=== PATIENT | female | born 1965 | race Caucasian/White ===

== ENCOUNTER 2017-01-28 10:41 | Emergency (ER) | payer OTHER ==
[2017-01-28 10:48] VITALS: BP 173/96; PULSE 91; RESP 16; TEMP 97.9
--- NOTE | 2017-01-28 11:02 | ED ---
ENT HPI - General Chief complaint: ENT Stated complaint: ear pain Time Seen by Provider: 01/28/17 10:51 Source: patient, RN notes reviewed Mode of arrival: ambulatory Limitations: no limitations - History of Present Illness Initial comments: 51-year-old female presents emergency Department chief complaint bilateral ear pressure. Patient states she's been multiple rounds of antibiotics for the seizures. She states that it cleared up states that she still has some pressure , pain. Patient denies fever, chills, sore throat. Patient states that they are popping occasionally. Patient does have some mild seasonal ALLERGIES. Patient offers no other complaints she denied dizziness, chest pain, shortness breath, neck pain. - Related Data Home Medications Medication Instructions Recorded Confirmed Glimepiride [Amaryl] 4 mg PO AC-BRKFST 06/29/14 02/25/16 Levothyroxine Sodium [Synthroid] 25 mcg PO DAILY 06/29/14 02/25/16 Furosemide [Lasix] 20 mg PO DAILY 08/02/15 02/25/16 Acetaminophen with Codeine 1 tab PO TID PRN 10/29/15 02/25/16 [Tylenol w/codeine #4] Loratadine [Claritin] 10 mg PO DAILY PRN 10/29/15 02/25/16 Magnesium Oxide [Mag-Ox] 400 mg PO DAILY PRN 10/29/15 02/25/16 Pioglitazone [Actos] 15 mg PO DAILY 10/29/15 02/25/16 Fluticasone Nasal [place] [Flonase 2 sprays EA NOSTRIL DAILY PRN 12/11/15 02/25/16 Nasal [place]] Omeprazole [PriLOSEC] 20 mg PO BID 12/11/15 02/25/16 Atorvastatin [Lipitor] 40 mg PO HS 01/19/16 02/25/16 DULoxetine HCL [Cymbalta] 60 mg PO DAILY 01/19/16 02/25/16 ALPRAZolam [Xanax] 0.5 mg PO TID PRN 02/25/16 02/25/16 Aspirin EC [Ecotrin] 81 mg PO DAILY 02/25/16 02/25/16 Losartan Potassium [Cozaar] 50 mg PO DAILY 02/25/16 02/25/16 sitaGLIPtin [Januvia] 100 mg PO DAILY 02/25/16 02/25/16 Previous Rx's Medication Instructions Recorded Potassium Chloride ER [K-Dur 10] 10 meq PO DAILY #30 tab 12/12/15 Fluticasone Nasal [place] [Flonase 2 spr EA NOSTRIL DAILY #1 bottle 01/28/17 Nasal [place]] methylPREDNISolone [Medrol Dose 4 mg PO DIRECTED #1 pack 01/28/17 Pack] Allergies Allergy/AdvReac Type Severity Reaction Status Date / Time aspirin Allergy Unknown Verified 01/28/17 10:45 celecoxib [From Celebrex] Allergy Unknown Verified 01/28/17 10:45 cephalexin monohydrate Allergy Unknown Verified 01/28/17 10:45 [From Keflex] hydrochlorothiazide Allergy Unknown Verified 01/28/17 10:45 ibuprofen [From Motrin] Allergy Unknown Verified 01/28/17 10:45 NSAIDS (Non-Steroidal Allergy Unknown Verified 01/28/17 10:45 Anti-Inflamma tramadol HCl [From Ultram] Allergy Unknown Verified 01/28/17 10:45 Review of Systems ROS Statement: Those systems with pertinent positive or pertinent negative responses have been documented in the HPI. ROS Other: All systems not noted in ROS Statement are negative. Past Medical History Past Medical History: Diabetes Mellitus, Osteoarthritis (OA), Sleep Apnea/CPAP/ BIPAP, Thyroid Disorder Additional Past Medical History / Comment(s): SEE DR PIÑA H&P, RESTLESS LEG, ARRYTHMIA History of Any Multi-Drug Resistant Organisms: None Reported Past Surgical History: Ablation, Section, Hysterectomy, Orthopedic Surgery Additional Past Surgical History / Comment(s): carpal tunnel 2, HEART ABLATION WITH AYANA, Past Anesthesia/Blood Transfusion Reactions: No Reported Reaction Past Psychological History: Anxiety, Depression Additional Psychological History / Comment(s): panic attacks Smoking Status: Never smoker Past Alcohol Use History: Rare Past Drug Use History: None Reported - Past Family History Mother Family Medical History: Coronary Artery Disease (CAD), Diabetes Mellitus, Hypertension Father Family Medical History: Congestive Heart Failure (CHF), CVA/TIA, Hypertension Sister(s) Family Medical History: Coronary Artery Disease (CAD), Diabetes Mellitus Brother(s) Family Medical History: Coronary Artery Disease (CAD), CVA/TIA Son(s) Family Medical History: No Reported History General Exam Limitations: no limitations General appearance: alert, in no apparent distress Head exam: Present: atraumatic, normocephalic, normal inspection Eye exam: Present: normal appearance, PERRL, EOMI. Absent: scleral icterus, conjunctival injection, periorbital swelling ENT exam: Present: normal oropharynx, mucous membranes moist, normal external ear exam. Absent: normal exam, TM's normal bilaterally (Some fluid noted in bilateral TM) Neck exam: Present: normal inspection, full ROM. Absent: tenderness, meningismus, lymphadenopathy Respiratory exam: Present: normal lung sounds bilaterally. Absent: respiratory distress, wheezes, rales, rhonchi, stridor Cardiovascular Exam: Present: regular rate, normal rhythm, normal heart sounds. Absent: systolic murmur, diastolic murmur, rubs, gallop, clicks Course Vital Signs 01/28/17 10:45 Temperature 97.9 F Pulse Rate 91 Respiratory 16 Rate Blood Pressure 173/96 O2 Sat by Pulse 99 Oximetry Medical Decision Making - Medical Decision Making 51-year-old female presented for bilateral ear pain pressure. Patient has eustachian tube dysfunction there is no evidence of otitis media at this time. Patient will be given aggressive treatment with Flonase and Medrol Dosepak. She may take [id number] antihistamines. Return parameters were discussed. Disposition Clinical Impression: Eustachian tube dysfunction Disposition: HOME SELF-CARE Condition: Stable Instructions: Earache (ED) Additional Instructions: Please return to the Emergency Department if symptoms worsen or any other concerns. Prescriptions: Fluticasone Nasal [place] [Flonase Nasal [place]] 2 spr EA NOSTRIL DAILY #1 bottle methylPREDNISolone [Medrol Dose Pack] 4 mg PO DIRECTED #1 pack Time of Disposition: 11:02
== END 2017-01-28 11:05 | disposition home or self-care (01) ==
LOC: EC 10:41
DX: H69.93 Unspecified Eustachian tube disorder, bilateral (principal); E07.9 Disorder of thyroid, unspecified; E11.9 Type 2 diabetes mellitus without complications; F32.9 Major depressive disorder, single episode, unspecified; Z88.1 Allergy status to other antibiotic agents; Z88.6 Allergy status to analgesic agent; Z88.8 Allergy status to other drugs, medicaments and biological substances; Z79.82 Long term (current) use of aspirin; Z79.84 Long term (current) use of oral hypoglycemic drugs; Z79.899 Other long term (current) drug therapy
CPT/HCPCS: 99283

== ENCOUNTER 2017-04-07 19:52 | Emergency (ER) | payer OTHER ==
[2017-04-07] MEDS ORDERED: NITROGLYCERIN SL TABS 0.4 MG TAB SUBLINGUAL STA ×3 (20:07)
[2017-04-07] MEDS ORDERED: ASPIRIN 81 MG CHEW PO STA (20:08)
--- NOTE | 2017-04-07 20:14 | ED ---
General Adult HPI - General Chief complaint: Chest Pain Stated complaint: chest pain Time Seen by Provider: 04/07/17 20:01 Source: patient, RN notes reviewed Mode of arrival: wheelchair Limitations: no limitations - History of Present Illness Initial comments: Patient is a pleasant 52-year-old female presenting to the emergency department complaining of chest discomfort. Onset was around 3 weeks ago. Discomfort feels like pressure. There is radiation towards left arm. Patient does have associated dyspnea, nausea, and diaphoresis. Symptoms are not necessarily exertional. No history of similar symptoms previously. No leg pain or leg swelling. No cough or fever. - Related Data Home Medications Medication Instructions Recorded Confirmed Glimepiride [Amaryl] 4 mg PO AC-BRKFST 06/29/14 04/07/17 Levothyroxine Sodium [Synthroid] 25 mcg PO DAILY 06/29/14 04/07/17 Furosemide [Lasix] 20 mg PO DAILY 08/02/15 04/07/17 Acetaminophen with Codeine 1 tab PO TID PRN 10/29/15 04/07/17 [Tylenol w/codeine #4] Magnesium Oxide [Mag-Ox] 400 mg PO DAILY PRN 10/29/15 04/07/17 Pioglitazone [Actos] 15 mg PO DAILY 10/29/15 04/07/17 Fluticasone Nasal [place] [Flonase 2 sprays EA NOSTRIL DAILY PRN 12/11/15 04/07/17 Nasal [place]] Omeprazole [PriLOSEC] 20 mg PO BID 12/11/15 04/07/17 Atorvastatin [Lipitor] 40 mg PO HS 01/19/16 04/07/17 DULoxetine HCL [Cymbalta] 60 mg PO DAILY 01/19/16 04/07/17 ALPRAZolam [Xanax] 0.5 mg PO TID PRN 02/25/16 04/07/17 Aspirin EC [Ecotrin] 81 mg PO DAILY 02/25/16 04/07/17 Losartan Potassium [Cozaar] 50 mg PO DAILY 02/25/16 04/07/17 sitaGLIPtin [Januvia] 100 mg PO DAILY 02/25/16 04/07/17 Gabapentin Unknown Dose 1 cap PO BID 04/07/17 04/07/17 Loperamide HCl [Imodium A-D] 2 mg PO DAILY PRN 04/07/17 04/07/17 Previous Rx's Medication Instructions Recorded Potassium Chloride ER [K-Dur 10] 10 meq PO DAILY #30 tab 12/12/15 Allergies Allergy/AdvReac Type Severity Reaction Status Date / Time aspirin Allergy Unknown Verified 04/07/17 20:29 celecoxib [From Celebrex] Allergy Unknown Verified 04/07/17 20:29 cephalexin monohydrate Allergy Unknown Verified 04/07/17 20:29 [From Keflex] hydrochlorothiazide Allergy Unknown Verified 04/07/17 20:29 ibuprofen [From Motrin] Allergy Unknown Verified 04/07/17 20:29 NSAIDS (Non-Steroidal Allergy Unknown Verified 04/07/17 20:29 Anti-Inflamma tramadol HCl [From Ultram] Allergy Unknown Verified 04/07/17 20:29 Review of Systems ROS Statement: Those systems with pertinent positive or pertinent negative responses have been documented in the HPI. ROS Other: All systems not noted in ROS Statement are negative. Constitutional: Denies: fever Eyes: Denies: eye pain ENT: Denies: ear pain Respiratory: Reports: dyspnea. Denies: cough Cardiovascular: Reports: chest pain Gastrointestinal: Reports: nausea. Denies: abdominal pain Genitourinary: Denies: dysuria Musculoskeletal: Denies: back pain Skin: Denies: rash Neurological: Denies: weakness Psychiatric: Denies: depression Past Medical History Past Medical History: Diabetes Mellitus, Osteoarthritis (OA), Sleep Apnea/CPAP/ BIPAP, Thyroid Disorder Additional Past Medical History / Comment(s): SEE DR BETTENCOURT H&P, RESTLESS LEG, ARRYTHMIA History of Any Multi-Drug Resistant Organisms: None Reported Past Surgical History: Ablation, Section, Hysterectomy, Orthopedic Surgery Additional Past Surgical History / Comment(s): carpal tunnel 2, HEART ABLATION WITH AYANA, Past Anesthesia/Blood Transfusion Reactions: No Reported Reaction Past Psychological History: Anxiety, Depression Smoking Status: Never smoker Past Alcohol Use History: Rare Past Drug Use History: None Reported - Past Family History Mother Family Medical History: Coronary Artery Disease (CAD), Diabetes Mellitus, Hypertension Father Family Medical History: Congestive Heart Failure (CHF), CVA/TIA, Hypertension Sister(s) Family Medical History: Coronary Artery Disease (CAD), Diabetes Mellitus Brother(s) Family Medical History: Coronary Artery Disease (CAD), CVA/TIA Son(s) Family Medical History: No Reported History General Exam Limitations: no limitations General appearance: alert, in no apparent distress Head exam: Present: atraumatic Eye exam: Present: normal appearance, PERRL ENT exam: Present: normal oropharynx Neck exam: Present: normal inspection Respiratory exam: Present: normal lung sounds bilaterally Cardiovascular Exam: Present: regular rate, normal rhythm Expanded Peripheral pulses: 2+: Radial (R), Radial (L), Dorsalis Pedis (R), Dorsalis Pedis (L) GI/Abdominal exam: Present: soft. Absent: tenderness Extremities exam: Present: normal inspection. Absent: pedal edema, calf tenderness Neurological exam: Present: alert Psychiatric exam: Present: normal affect, normal mood Skin exam: Present: normal color Course Vital Signs 04/07/17 04/07/17 04/07/17 19:59 21:03 22:08 Temperature 98.6 F Pulse Rate 94 87 90 Respiratory 18 16 16 Rate Blood Pressure 151/70 117/71 136/62 O2 Sat by Pulse 99 100 100 Oximetry - Reevaluation(s) Reevaluation #1: 04/07/17 20:09 Patient states aspirin upsets her stomach unless it is enteric-coated. EKG Findings - EKG Comments: EKG Findings:: Normal sinus rhythm at 90. VA 146. QRS 80. QT 352. QTC 4:30. Normal axis. Normal QRS. Normal ST-T. Medical Decision Making - Medical Decision Making Patient reevaluated and resting comfortably in bed. No change of symptoms. Patient refused further nitroglycerin and spit out the nitroglycerin secondary to burning under her tongue. Patient was updated on results. Patient was recommended to be admitted for repeat testing and medicine and cardiology evaluation. Patient is made aware of limitations of tests in the emergency department. Patient is also made aware that heart attack has not been ruled out and risk for heart attack in the near future has not been ruled out. Despite this patient refuses admission and will leave AGAINST MEDICAL ADVICE. Patient does demonstrate medical decision making. Patient states she has an appointment tomorrow with her digital media manager and agrees to keep this. - Lab Data Result diagrams: 04/07/17 20:10 04/07/17 20:10 Lab Results 06/25/17 06/25/17 06/25/17 Range/Units 20:10 20:10 20:10 WBC 10.0 (3.8-10.6) k/uL RBC 4.64 (3.80-5.40) m/uL Hgb 14.3 (11.4-16.0) gm/dL Hct 42.7 (34.0-46.0) % MCV 92.1 (80.0-100.0) fL MCH 30.9 (25.0-35.0) pg MCHC 33.6 (31.0-37.0) g/dL RDW 14.4 (11.5-15.5) % Plt Count 207 (150-450) k/uL Neutrophils % 64 % Lymphocytes % 25 % Monocytes % 6 % Eosinophils % 2 % Basophils % 1 % Neutrophils # 6.4 (1.3-7.7) k/uL Lymphocytes # 2.5 (1.0-4.8) k/uL Monocytes # 0.6 (0-1.0) k/uL Eosinophils # 0.2 (0-0.7) k/uL Basophils # 0.1 (0-0.2) k/uL PT (9.0-12.0) sec INR (<1.1) APTT (22.0-30.0) sec Sodium 141 (137-145) mmol/L Potassium 4.1 (3.5-5.1) mmol/L Chloride 102 (98-107) mmol/L Carbon Dioxide 27 (22-30) mmol/L Anion Gap 12 mmol/L BUN 17 (7-17) mg/dL Creatinine 0.75 (0.52-1.04) mg/dL Est GFR (MDRD) Af Amer >60 (>60 ml/min/1.73 sqM) Est GFR (MDRD) Non-Af >60 (>60 ml/min/1.73 sqM) Glucose 254 H (74-99) mg/dL Calcium 9.8 (8.4-10.2) mg/dL Magnesium 1.8 (1.6-2.3) mg/dL Total Bilirubin 0.7 (0.2-1.3) mg/dL AST 62 H (14-36) U/L ALT 44 (9-52) U/L Alkaline Phosphatase 93 (38-126) U/L Total Creatine Kinase 96 (30-135) U/L CK-MB (CK-2) 0.6 (0.0-2.4) ng/mL CK-MB (CK-2) Rel Index 0.6 Troponin I <0.012 (0.000-0.034) ng/mL NT-Pro-B Natriuret Pep pg/mL Total Protein 8.1 (6.3-8.2) g/dL Albumin 4.2 (3.5-5.0) g/dL 04/07/17 04/07/17 Range/Units 20:10 20:10 WBC (3.8-10.6) k/uL RBC (3.80-5.40) m/uL Hgb (11.4-16.0) gm/dL Hct (34.0-46.0) % MCV (80.0-100.0) fL MCH (25.0-35.0) pg MCHC (31.0-37.0) g/dL RDW (11.5-15.5) % Plt Count (150-450) k/uL Neutrophils % % Lymphocytes % % Monocytes % % Eosinophils % % Basophils % % Neutrophils # (1.3-7.7) k/uL Lymphocytes # (1.0-4.8) k/uL Monocytes # (0-1.0) k/uL Eosinophils # (0-0.7) k/uL Basophils # (0-0.2) k/uL PT 11.5 (9.0-12.0) sec INR 1.1 (<1.1) APTT 23.7 (22.0-30.0) sec Sodium (137-145) mmol/L Potassium (3.5-5.1) mmol/L Chloride (98-107) mmol/L Carbon Dioxide (22-30) mmol/L Anion Gap mmol/L BUN (7-17) mg/dL Creatinine (0.52-1.04) mg/dL Est GFR (MDRD) Af Amer (>60 ml/min/1.73 sqM) Est GFR (MDRD) Non-Af (>60 ml/min/1.73 sqM) Glucose (74-99) mg/dL Calcium (8.4-10.2) mg/dL Magnesium (1.6-2.3) mg/dL Total Bilirubin (0.2-1.3) mg/dL AST (14-36) U/L ALT (9-52) U/L Alkaline Phosphatase (38-126) U/L Total Creatine Kinase (30-135) U/L CK-MB (CK-2) (0.0-2.4) ng/mL CK-MB (CK-2) Rel Index Troponin I (0.000-0.034) ng/mL NT-Pro-B Natriuret Pep 27 pg/mL Total Protein (6.3-8.2) g/dL Albumin (3.5-5.0) g/dL - Radiology Data Radiology results: image reviewed (Chest x-ray shows no acute process) Disposition Clinical Impression: Chest pain Disposition: Left Against Medical Advice Instructions: Chest Pain (ED) Additional Instructions: Please follow-up with your digital media manager tomorrow as scheduled. Please also follow-up to primary care physician in the next day or 2 for recheck. Return for increased pain, difficulty breathing, worsening or change in symptoms or other concerns. Please take enteric-coated aspirin daily until otherwise directed by your primary care physician or digital media manager. Referrals: Judah Amaya MD [Primary Care Provider] - 1-2 days Bacilio Bettencourt MD [STAFF PHYSICIAN] - 1-2 days Time of Disposition: 22:11
[2017-04-07 20:22] VITALS: TEMP 98.6
[2017-04-07 20:39] LABS: ALT 44 U/L (9-52); AST 62 U/L (14-36); Alkaline Phosphatase 93 U/L (38-126); Anion Gap 12 mmol/L; Blood Urea Nitrogen 17 mg/dL (7-17); Calcium 9.8 mg/dL (8.4-10.2); Carbon Dioxide 27 mmol/L (22-30); Chloride 102 mmol/L (98-107); Glucose 254 mg/dL (74-99); Magnesium 1.8 mg/dL (1.6-2.3); Non-African American GFR(MDRD) >60 (>60 ml/min/1.73 sqM); Potassium 4.1 mmol/L (3.5-5.1); Sodium 141 mmol/L (137-145); Total Bilirubin 0.7 mg/dL (0.2-1.3); Total Protein 8.1 g/dL (6.3-8.2)
[2017-04-07 20:40] LABS: INR 1.1 (<1.1); Partial Thromboplastin Time 23.7 sec (22.0-30.0); Prothrombin Time 11.5 sec (9.0-12.0)
--- NOTE | 2017-04-07 20:43 | XR ---
EXAMINATION TYPE: XR chest 2V DATE OF EXAM: 04/07/2017 COMPARISON: 02/25/2016 HISTORY: Chest pain TECHNIQUE: Frontal and lateral views of the chest are obtained. FINDINGS: There is no heart failure nor confluent pneumonic infiltrate. Heart size is normal. There are no hilar masses. There are chest leads. There is spurring in the thoracic spine. There is no sign of pleural effusion. IMPRESSION: No active cardiopulmonary disease. Normal heart. No change.
[2017-04-07 20:51] LABS: Basophils # (A) 0.1 k/uL (0-0.2); Basophils % (A) 1 %; CH 30.1; CHCM 32.9; Creatine Kinase 96 U/L (30-135); Eosinophils # (A) 0.2 k/uL (0-0.7); Eosinophils % (A) 2 %; HCT 42.7 % (34.0-46.0); HDW 2.86; HGB 14.3 gm/dL (11.4-16.0); Luc # (Auto) 0.29; Luc % (Auto) 3; Lymphocytes # (A) 2.5 k/uL (1.0-4.8); Lymphocytes % (A) 25 %; MCH 30.9 pg (25.0-35.0); MCHC 33.6 g/dL (31.0-37.0); MCV 92.1 fL (80.0-100.0); Mean Platelet Volume 7.1; Monocytes # (A) 0.6 k/uL (0-1.0); Monocytes % (A) 6 %; Neutrophils # (A) 6.4 k/uL (1.3-7.7); Neutrophils % (A) 64 %; RBC 4.64 m/uL (3.80-5.40); RDW 14.4 % (11.5-15.5); WBC (Perox) 9.79
[2017-04-07 21:04] LABS: Creatine Kinase MB 0.6 ng/mL (0.0-2.4); Troponin I <0.012 ng/mL (0.000-0.034)
[2017-04-07 21:05] VITALS: RESP 16
[2017-04-07 22:09] VITALS: BP 136/62; PULSE 90
[2017-04-08] MEDS ORDERED: ASPIRIN 325 MG TAB PO SCH (09:00)
== END 2017-04-07 22:14 | disposition left against medical advice (07) ==
LOC: EC 19:52
DX: R07.9 Chest pain, unspecified (principal); E07.9 Disorder of thyroid, unspecified; E11.9 Type 2 diabetes mellitus without complications; M19.90 Unspecified osteoarthritis, unspecified site; G25.81 Restless legs syndrome; F32.9 Major depressive disorder, single episode, unspecified; F41.9 Anxiety disorder, unspecified; Z82.49 Family history of ischemic heart disease and other diseases of the circulatory system; Z79.899 Other long term (current) drug therapy; Z79.84 Long term (current) use of oral hypoglycemic drugs; Z79.51 Long term (current) use of inhaled steroids; Z79.82 Long term (current) use of aspirin; Z88.6 Allergy status to analgesic agent; Z88.1 Allergy status to other antibiotic agents; Z88.5 Allergy status to narcotic agent; Z88.8 Allergy status to other drugs, medicaments and biological substances
CPT/HCPCS: 36415; 71020; 80053; 82550; 82553; 83735; 83880; 84484; 85025; 85610; 85730; 93005; 99285

== ENCOUNTER 2017-05-06 06:29 | Day surgery (SDC) | payer OTHER ==
[~2017-05-06 06:29] MED LIST: ALPRAZolam 0.25 MG TAB PO PRN; ALPRAZolam 0.5 MG TAB PO PRN; ASPIRIN 325 MG TAB PO STA; ATORVASTATIN 80 MG TAB PO STA; NITROGLYCERIN SL TABS 0.4 MG TAB SUBLINGUAL PRN; SODIUM CHLORIDE 0.9% 1,000 ML in EMPTY BAG 1 BAG IV ONE
[2017-05-06 07:12] LABS: Glucose,Whole Blood 142 mg/dL (75-99)
[2017-05-06 07:17] VITALS: TEMP 98.3
[2017-05-06] MEDS ORDERED: VERAPAMIL 2.5 MG/ML 2 ML AMP ONE (07:34)
[2017-05-06] MEDS ORDERED: fentaNYL (PF) 50 MCG/ML 2 ML AMP ONE (07:34)
[2017-05-06] MEDS ORDERED: diphenhydrAMINE 50 MG/ML 1 ML VIAL ONE (07:34)
[2017-05-06] MEDS ORDERED: fentaNYL (PF) 50 MCG/ML 2 ML AMP IV ONE (07:42)
[2017-05-06] MEDS ORDERED: diphenhydrAMINE 50 MG/ML 1 ML VIAL IVP ONE (07:42)
[2017-05-06] MEDS ORDERED: LIDOCAINE 2% INJ 20 MG/ML SQ ONE (07:45)
[2017-05-06] MEDS ORDERED: VERAPAMIL SYRINGE (5 MG/10 ML) INTRAARTER ONE (07:48)
[2017-05-06] MEDS ORDERED: MIDAZOLAM 2 MG/2 ML VIAL ONE (07:54)
[2017-05-06] MEDS ORDERED: MIDAZOLAM 2 MG/2 ML VIAL IV ONE (07:55)
[2017-05-06] MEDS ORDERED: IOHEXOL 180 MG/ML 1 ML ML INJ ONE (08:00)
[2017-05-06] MEDS ORDERED: RX INFO: IV CONTRAST WAS GIVEN 1 EACH MISC MISCELLANE PRN (08:12)
[2017-05-06] MEDS ORDERED: PANTOPRAZOLE 40 MG TABLET PO PRN (08:13)
[2017-05-06] MEDS ORDERED: POTASSIUM CHLORIDE ER 10 MEQ TAB.ER.PRT PO PRN (08:13)
[2017-05-06] MEDS ORDERED: MAGNESIUM OXIDE 400 MG TAB PO PRN (08:13)
[2017-05-06] MEDS ORDERED: FLUTICASONE 50MCG/SPRAY NASAL 16GM EA NOSTRIL PRN (08:13)
[2017-05-06] MEDS ORDERED: ALPRAZolam 0.5 MG TAB PO PRN (08:13)
[2017-05-06] MEDS ORDERED: Acetaminophen-Codeine 300-30mg TAB PO PRN (08:13)
[2017-05-06] MEDS ORDERED: SODIUM CHLORIDE 0.9% 1,000 ML IV SCH (08:15)
[2017-05-06] MEDS ORDERED: PIOGLITAZONE 15 MG TAB PO STA (08:49)
[2017-05-06] MEDS ORDERED: GLIMEPIRIDE 2 MG TAB PO SCH ×2 (09:00→21:00)
[2017-05-06] MEDS ORDERED: DULoxetine HCL 60 MG CAPSULE.DR PO SCH (09:00)
[2017-05-06] MEDS ORDERED: PIOGLITAZONE 15 MG TAB PO SCH (09:00)
[2017-05-06] MEDS ORDERED: NON-FORMULARY DRUG (Sitagliptin 100 MG) PO SCH (09:00)
[2017-05-06 12:59] VITALS: BP 126/75; PULSE 81; RESP 16
--- NOTE | 2017-05-06 20:23 | CC ---
Mrs. Johnson is a 52-year-old female with known history of hypertension, hyperlipidemia and diabetes mellitus who presented to Dr. Bettencourt with symptoms of recurrent chest discomfort. She had myocardial perfusion imaging that revealed no evidence of inducible ischemia, but she kept on having chest discomfort and was seen in the emergency room. Because of her persistent symptoms, recommendation was made regarding cardiac catheterization. The procedure as well as risks and complications were discussed with the patient, who was in full understanding and agreement. PROCEDURE: The patient was brought to the record label internship in a fasting, semi-sedated state after receiving fentanyl and Benadryl and achieving moderate conscious sedated state. Using Xylocaine anesthesia and surgical technique, a 6 Malaysian sheath was introduced into the right radial artery. Selective right and left coronary angiography was performed using 5 Malaysian, 3.5 Bend, right and left [place] catheters. Multiple views were taken of the coronary arteries, including hemiaxial views. Following that, a 5 [place] tight pigtail catheter was introduced into the left ventricle and a 30-degree DIETZ view of the left ventricle was obtained. Following that, catheter and sheath were removed. Hemostasis was obtained with deployment of a TR band. There were no immediate complications. The patient was returned to her room in stable condition. Of note , patient received 5000 units of intravenous heparin as well as intrarterial Verapamil. FINDINGS LEFT MAIN: This is a large-sized vessel bifurcating into left circumflex, left anterior descending artery. Left main coronary artery is without any obstructive coronary artery disease. LEFT ANTERIOR DESCENDING ARTERY: This is a large-sized vessel reaching toward the apex. It tapers down in the distal third, giving rise to a large diagonal branch. The left anterior descending artery as well as its branches have no evidence of obstructive disease. LEFT CIRCUMFLEX: This is a non-dominant vessel giving rise to 3 obtuse marginal branches. The left circumflex as well as its branches have no evidence of obstructive coronary artery disease. RIGHT CORONARY ARTERY: This is a large dominant vessel bifurcating into PDA and posterolateral segment and branches. The right PDA reaches toward the inferoapical wall. The right coronary artery and its branches have no evidence of obstructive coronary artery disease. LEFT VENTRICULOGRAM: Left ventriculogram was performed in 30-degree DIETZ view and revealed normal left ventricular size and systolic function. Ejection fraction is 60% with no significant mitral regurgitation. HEMODYNAMICS: There was no gradient across the across the aortic valve. The left ventricular end-diastolic pressure was 12 mmHg. CONCLUSION: 1. Normal coronary arteries. 2. Normal left ventricular size and systolic function. RECOMMENDATIONS: In view of findings and anatomy, I have recommended continued medical therapy with the aggressive coronary risk factor modifications that have been initiated. Those findings and recommendations were discussed with the patient and her family, who are in full understanding and agreement. ASHISH MCKEON
--- NOTE | 2017-05-06 20:30 | MISC ---
LETTER DATE: 05/06/2017 TO: DR. MONIKA HINOJOSA RE: NADIA COHEN ([phone]) Dear Dr. Hinojosa, I had the pleasure of performing cardiac catheterization on Mrs. Cohen at [facility] on May 06, 2017, and a full copy of the procedure note will be forwarded to you. In brief, she was found to have no evidence of obstructive coronary artery disease, with preserved left ventricular size and systolic function. Based on those findings, I have recommended continued medical therapy with the aggressive coronary risk modifications you have initiated. Thank you again for allowing me to participate in her care. Please feel free to call with any questions. Sincerely yours, Bri Hernandez M.D. MIKE
[2017-05-06] MEDS ORDERED: NON-FORMULARY DRUG (Gabapentin [Neurontin] 600 MG) PO SCH (21:00)
[2017-05-06] MEDS ORDERED: ATORVASTATIN 40 MG TAB PO SCH (21:00)
[2017-05-07] MEDS ORDERED: LEVOTHYROXINE 25 MCG TAB PO SCH (09:00)
[2017-05-07] MEDS ORDERED: LOSARTAN 50 MG TAB PO SCH (09:00)
== END 2017-05-06 13:06 | disposition home or self-care (01) ==
LOC: CATHCVL 06:29
PROVIDERS: ATTEND Internal Medicine Interventional Cardiology
DX: R07.2 Precordial pain (principal); E11.9 Type 2 diabetes mellitus without complications; I25.118 Atherosclerotic heart disease of native coronary artery with other forms of angina pectoris; I10 Essential (primary) hypertension; E78.5 Hyperlipidemia, unspecified; I47.1 Supraventricular tachycardia; E78.00 Pure hypercholesterolemia, unspecified; Z82.49 Family history of ischemic heart disease and other diseases of the circulatory system; Z79.899 Other long term (current) drug therapy; Z79.82 Long term (current) use of aspirin; Z79.84 Long term (current) use of oral hypoglycemic drugs; Z88.6 Allergy status to analgesic agent; Z88.5 Allergy status to narcotic agent; Z88.8 Allergy status to other drugs, medicaments and biological substances
CPT/HCPCS: 93458; 99152; C1769 ×3; C1894; J2001; J2250; J1200; Q9965; J3010; J1644

== ENCOUNTER 2019-03-12 18:30 | Emergency (ER) | payer MEDICARE, OTHER ==
[2019-03-12 18:39] VITALS: RESP 18
[2019-03-12] MEDS ORDERED: SODIUM CHLORIDE 0.9% 1,000 ML IV ONE (18:56)
--- NOTE | 2019-03-12 19:02 | ED ---
General Adult HPI - General Chief complaint: Fall Stated complaint: Fall-shoulder injury Time Seen by Provider: 03/12/19 18:31 Source: patient, EMS, RN notes reviewed Mode of arrival: EMS Limitations: no limitations - History of Present Illness Initial comments: Patient is a pleasant 54-year-old female presenting to the emergency department following a fall. Patient was pushing a van. Patient slipped and fell. Patient states she landed on her knees and then use her arm to help catch her. Patient believes the door struck her in the abdomen. Patient did also strike her head. No skipped and headache. No confusion. No loss of consciousness. N o persistent vomiting. No visual changes. Patient mostly complains of discomfort of her right upper arm. There is some discomfort of the right wrist and right knee as well. Patient states there is also some discomfort of the abdomen still. - Related Data Home Medications Medication Instructions Recorded Confirmed Glimepiride [Amaryl] 2 mg PO BID 06/29/14 05/06/17 Levothyroxine Sodium [Synthroid] 25 mcg PO QAM 06/29/14 05/06/17 Furosemide [Lasix] 20 mg PO DAILY PRN 08/02/15 05/06/17 Acetaminophen with Codeine 1 tab PO TID PRN 10/29/15 05/03/17 [Tylenol w/codeine #4] Magnesium Oxide [Mag-Ox] 400 mg PO DAILY PRN 10/29/15 05/06/17 Pioglitazone [Actos] 15 mg PO QAM 10/29/15 05/06/17 Fluticasone Nasal [place] [Flonase 2 sprays EA NOSTRIL DAILY PRN 12/11/15 05/03/17 Nasal [place]] Omeprazole [PriLOSEC] 20 mg PO BID PRN 12/11/15 05/06/17 Atorvastatin [Lipitor] 40 mg PO HS 01/19/16 05/06/17 DULoxetine HCL [Cymbalta] 60 mg PO QAM 01/19/16 05/06/17 ALPRAZolam [Xanax] 0.5 mg PO TID PRN 02/25/16 05/06/17 Aspirin EC [Ecotrin] 81 mg PO DAILY 02/25/16 05/06/17 Losartan Potassium [Cozaar] 25 mg PO QAM 02/25/16 05/06/17 sitaGLIPtin [Januvia] 100 mg PO QAM 02/25/16 05/06/17 Gabapentin [Neurontin] 600 mg PO HS 05/03/17 05/06/17 Potassium Chloride ER [K-Dur 10] 10 meq PO DAILY PRN 05/03/17 05/06/17 Allergies Allergy/AdvReac Type Severity Reaction Status Date / Time aspirin Allergy Unknown Verified 03/12/19 18:39 celecoxib [From Celebrex] Allergy Unknown Verified 03/12/19 18:39 cephalexin monohydrate Allergy Unknown Verified 03/12/19 18:39 [From Keflex] hydrochlorothiazide Allergy Unknown Verified 03/12/19 18:39 ibuprofen [From Motrin] Allergy Unknown Verified 03/12/19 18:39 latex Allergy Rash/Hives Verified 03/12/19 18:39 nitroglycerin Allergy CAUSED Verified 03/12/19 18:39 SEVER BURNING UNDER TONGUE, WITH REDNESS NSAIDS (Non-Steroidal Allergy Unknown Verified 03/12/19 18:39 Anti-Inflamma tramadol HCl [From Ultram] Allergy Unknown Verified 03/12/19 18:39 adhesive AdvReac Rash/Hives Verified 03/12/19 18:39 Review of Systems ROS Statement: Those systems with pertinent positive or pertinent negative responses have been documented in the HPI. ROS Other: All systems not noted in ROS Statement are negative. Constitutional: Denies: fever Eyes: Denies: eye pain ENT: Denies: ear pain Respiratory: Denies: cough, dyspnea Cardiovascular: Denies: chest pain Endocrine: Denies: fatigue Gastrointestinal: Reports: abdominal pain (Right flank) Musculoskeletal: Reports: as per HPI. Denies: back pain Skin: Denies: rash Neurological: Denies: weakness Past Medical History Past Medical History: Diabetes Mellitus, Osteoarthritis (OA), Sleep Apnea/CPAP/ BIPAP, Thyroid Disorder Additional Past Medical History / Comment(s): RESTLESS LEG, ARRYTHMIA. CHRONIC HIP AND KNEE PAIN. DOES NOT USE CPAP. History of Any Multi-Drug Resistant Organisms: None Reported Past Surgical History: Ablation, Section, Hysterectomy, Orthopedic Surgery Additional Past Surgical History / Comment(s): carpal tunnel 2. HEART ABLATION WITH KRISHEN. Past Anesthesia/Blood Transfusion Reactions: Motion Sickness Past Psychological History: Anxiety, Depression Smoking Status: Never smoker Past Alcohol Use History: Rare Past Drug Use History: None Reported - Past Family History Mother Family Medical History: Coronary Artery Disease (CAD), Diabetes Mellitus, Hypertension Father Family Medical History: Congestive Heart Failure (CHF), CVA/TIA, Hypertension Sister(s) Family Medical History: Coronary Artery Disease (CAD), Diabetes Mellitus Brother(s) Family Medical History: Coronary Artery Disease (CAD), CVA/TIA Son(s) Family Medical History: No Reported History General Exam Limitations: no limitations General appearance: alert, in no apparent distress Head exam: Present: atraumatic Eye exam: Present: normal appearance, PERRL ENT exam: Present: normal oropharynx Neck exam: Present: normal inspection. Absent: tenderness Respiratory exam: Present: normal lung sounds bilaterally, chest wall tenderness (Mild tenderness right lower lateral ribs) Cardiovascular Exam: Present: regular rate, normal rhythm GI/Abdominal exam: Present: soft, tenderness (Mild tenderness right upper quadrant). Absent: distended Extremities exam: Present: other (Moderate tenderness right upper humerus region. Decreased range of motion secondary to discomfort. Mild tenderness right knee and right patellar region. Distally all extremities are neurovascular intact) Neurological exam: Present: alert, CN II-XII intact. Absent: motor sensory deficit Expanded Neurological exam: Present: protecting the airway Speech: Present: fluid speech Motor strength exam: RUE: 5, LUE: 5, RLE: 5, LLE: 5 Eye Response: (4) open spontaneously Motor Response: (6) obeys commands Verbal Response: (5) oriented Psychiatric exam: Present: normal affect, normal mood Skin exam: Present: normal color Course Vital Signs 03/12/19 18:32 Temperature 98.6 F Pulse Rate 99 Respiratory 18 Rate Blood Pressure 158/77 O2 Sat by Pulse 95 Oximetry Medical Decision Making - Medical Decision Making Patient reevaluated and updated. Patient still refuses pain medication. - Lab Data Result diagrams: 03/12/19 19:51 03/12/19 19:51 Lab Results 03/12/19 03/12/19 03/12/19 Range/Units 19:51 19:51 19:51 WBC 8.7 (3.8-10.6) k/uL RBC 4.79 (3.80-5.40) m/uL Hgb 13.8 (11.4-16.0) gm/dL Hct 42.4 (34.0-46.0) % MCV 88.4 (80.0-100.0) fL MCH 28.8 (25.0-35.0) pg MCHC 32.6 (31.0-37.0) g/dL RDW 15.1 (11.5-15.5) % Plt Count 184 (150-450) k/uL Neutrophils % 74 % Lymphocytes % 16 % Monocytes % 6 % Eosinophils % 2 % Basophils % 1 % Neutrophils # 6.4 (1.3-7.7) k/uL Lymphocytes # 1.4 (1.0-4.8) k/uL Monocytes # 0.5 (0-1.0) k/uL Eosinophils # 0.1 (0-0.7) k/uL Basophils # 0.0 (0-0.2) k/uL PT 10.7 (9.0-12.0) sec INR 1.0 (<1.2) APTT 23.2 (22.0-30.0) sec Sodium 139 (137-145) mmol/L Potassium 4.6 (3.5-5.1) mmol/L Chloride 102 (98-107) mmol/L Carbon Dioxide 27 (22-30) mmol/L Anion Gap 10 mmol/L BUN 16 (7-17) mg/dL Creatinine 0.65 (0.52-1.04) mg/dL Est GFR (CKD-EPI)AfAm >90 (>60 ml/min/1.73 sqM) Est GFR (CKD-EPI)NonAf >90 (>60 ml/min/1.73 sqM) Glucose 219 H (74-99) mg/dL Calcium 9.7 (8.4-10.2) mg/dL Total Bilirubin 0.6 (0.2-1.3) mg/dL AST 59 H (14-36) U/L ALT 36 (9-52) U/L Alkaline Phosphatase 86 (38-126) U/L Total Protein 8.3 H (6.3-8.2) g/dL Albumin 4.2 (3.5-5.0) g/dL - Radiology Data Radiology results: report reviewed (Computed tomography scan of the abdomen pelvis shows no acute traumatic injury.), image reviewed (Chest x-ray, right humerus x-ray, right wrist x-ray, right knee x-ray revealed no acute traumatic abnormality.) Disposition Clinical Impression: Fall, Shoulder injury, Abrasion Disposition: HOME SELF-CARE Condition: Stable Instructions (If sedation given, give patient instructions): Shoulder Sprain (ED), Abrasion (ED) Additional Instructions: Ice to affected area. Please follow-up with primary care physician in the next day or 2 for recheck. Return for increased pain, difficult to breathing, worsening or changing symptoms or other concerns. Twice daily wash abrasions with soap and water, antibiotic ointment, and bandage. Is patient prescribed a controlled substance at d/c from ED?: No Referrals: Ester Jay MD [Primary Care Provider] - 1-2 days Time of Disposition: 20:32
--- NOTE | 2019-03-12 19:39 | CT ---
EXAMINATION TYPE: CT abdomen pelvis wo con DATE OF EXAM: 03/12/2019 COMPARISON: 06/29/2014 HISTORY: Right side pain after fall injury CT DLP: 2534 mGycm Automated exposure control for dose reduction was used. TECHNIQUE: Helical acquisition of images was performed from the lung bases through the pelvis. FINDINGS: : Lung bases are clear. There is no pleural effusion. There is no pericardial effusion. Liver spleen pancreas gallbladder appear normal. Bile ducts are not dilated. There is no adrenal mass . Kidneys have normal size and contour. There is no hydronephrosis. The ureters are not dilated. Ther e is no retroperitoneal adenopathy. Bladder distends smoothly. Exam is limited by patient size. There is no inguinal hernia. There is no free fluid in the pelvis. There are isolated sigmoid diverticula. There is no sign of div erticulitis. There is umbilical hernia that contains fat. There is no ascites. There is no mesenteric edema. There is no sign of free air. There are some spondylotic changes in the lumbar spine. There i s no compression fracture. There is previous umbilical hernia surgery. Appendix appears normal. There is mild subcutaneous edema around the lower abdomen and pelvis. Exam is limited by the patient size. Bony pelvis appears intact. IMPRESSION: PREVIOUS UMBILICAL SURGERY. THERE IS CLEARING OF SMALL FLUID COLLECTION ON THE RIGHT ABDOMINAL WALL C OMPARED TO OLD EXAM. MILD SIGMOID DIVERTICULOSIS. NO SIGN OF ACUTE ABDOMEN AND PELVIS. Mild subcutane ous edema around the lower abdomen and pelvis is a change compared to old exam.
--- NOTE | 2019-03-12 20:02 | XR ---
EXAMINATION TYPE: XR knee 4V RT DATE OF EXAM: 03/12/2019 COMPARISON: NONE HISTORY: Knee pain TECHNIQUE: 5 views FINDINGS: I see no fracture nor dislocation. There is no sign of joint effusion. There is spurring of the patella. Joint spaces are fairly normal. IMPRESSION: No acute abnormality of the right knee.
--- NOTE | 2019-03-12 20:02 | XR ---
EXAMINATION TYPE: XR chest 1V portable DATE OF EXAM: 03/12/2019 COMPARISON: 04/07/2017 HISTORY: Fall. Rib pain TECHNIQUE: Single frontal view of the chest is obtained. FINDINGS: Heart and mediastinum are normal. Lungs are clear. Diaphragm is normal. Bony thorax is int act. IMPRESSION: Normal chest. No change.
--- NOTE | 2019-03-12 20:03 | XR ---
EXAMINATION TYPE: XR humerus RT DATE OF EXAM: 03/12/2019 COMPARISON: NONE HISTORY: Pain TECHNIQUE: 2 views FINDINGS: I see no fracture nor dislocation. Shoulder joint and elbow joint appear intact. IMPRESSION: Negative right humerus exam.
--- NOTE | 2019-03-12 20:05 | XR ---
EXAMINATION TYPE: XR wrist complete RT DATE OF EXAM: 03/12/2019 COMPARISON: NONE HISTORY: Wrist pain TECHNIQUE: 3 views FINDINGS: There is some narrowing and spurring at the first carpometacarpal joint. I see no fracture nor dislocation. IMPRESSION: No acute abnormality of the right wrist.
[2019-03-12 20:16] LABS: Basophils % (A) 1 %; Eosinophils # (A) 0.1 k/uL (0-0.7); Eosinophils % (A) 2 %; HCT 42.4 % (34.0-46.0); HGB 13.8 gm/dL (11.4-16.0); Lymphocytes # (A) 1.4 k/uL (1.0-4.8); Lymphocytes % (A) 16 %; MCH 28.8 pg (25.0-35.0); MCHC 32.6 g/dL (31.0-37.0); MCV 88.4 fL (80.0-100.0); Mean Platelet Volume 7.8; Monocytes # (A) 0.5 k/uL (0-1.0); Monocytes % (A) 6 %; Neutrophils # (A) 6.4 k/uL (1.3-7.7); Neutrophils % (A) 74 %; Platelet Count 184 k/uL (150-450); RBC 4.79 m/uL (3.80-5.40); RDW 15.1 % (11.5-15.5); WBC 8.7 k/uL (3.8-10.6)
[2019-03-12 20:22] LABS: Partial Thromboplastin Time 23.2 sec (22.0-30.0); Prothrombin Time 10.7 sec (9.0-12.0)
[2019-03-12 20:31] LABS: ALT 36 U/L (9-52); AST 59 U/L (14-36); Albumin 4.2 g/dL (3.5-5.0); Alkaline Phosphatase 86 U/L (38-126); Anion Gap 10 mmol/L; Blood Urea Nitrogen 16 mg/dL (7-17); Calcium 9.7 mg/dL (8.4-10.2); Carbon Dioxide 27 mmol/L (22-30); Chloride 102 mmol/L (98-107); Glucose 219 mg/dL (74-99); Potassium 4.6 mmol/L (3.5-5.1); Sodium 139 mmol/L (137-145); Total Bilirubin 0.6 mg/dL (0.2-1.3); Total Protein 8.3 g/dL (6.3-8.2)
[2019-03-12 20:55] VITALS: BP 155/85; PULSE 94; TEMP 98.9
== END 2019-03-12 20:54 | disposition home or self-care (01) ==
LOC: EC 18:30
DX: S40.211A Abrasion of right shoulder, initial encounter (principal); R07.89 Other chest pain; R10.11 Right upper quadrant pain; R29.898 Other symptoms and signs involving the musculoskeletal system; E11.9 Type 2 diabetes mellitus without complications; M19.90 Unspecified osteoarthritis, unspecified site; E07.9 Disorder of thyroid, unspecified; F32.9 Major depressive disorder, single episode, unspecified; F41.9 Anxiety disorder, unspecified; Z79.84 Long term (current) use of oral hypoglycemic drugs; Z79.890 Hormone replacement therapy; Z79.899 Other long term (current) drug therapy; Z79.82 Long term (current) use of aspirin; Z88.6 Allergy status to analgesic agent; Z88.5 Allergy status to narcotic agent; Z91.040 Latex allergy status; Z88.1 Allergy status to other antibiotic agents; Z91.048 Other nonmedicinal substance allergy status; Z88.8 Allergy status to other drugs, medicaments and biological substances; Z53.29 Procedure and treatment not carried out because of patient's decision for other reasons; W01.0XXA Fall on same level from slipping, tripping and stumbling without subsequent striking against object, initial encounter; Y92.009 Unspecified place in unspecified non-institutional (private) residence as the place of occurrence of the external cause
CPT/HCPCS: 36415; 71045; 74176; 80053; 85025; 85610; 85730; 96360; 99284